=== PATIENT | male | born 1970 | race Asian ===

== ENCOUNTER 2024-01-13 08:04 | Day surgery (SDC) | payer OTHER ==
[~2024-01-13] VITALS: Ht 167.6 cm; Wt 65.8 kg
[2024-01-13 09:03] VITALS: O2SAT 99
[2024-01-13] MEDS ORDERED: MIDAZOLAM HCL 5 MG/5 ML VIAL ONE (09:58)
[2024-01-13] MEDS ORDERED: MEPERIDINE 100 MG INJ. 100 MG/ML VIAL ONE (09:58)
[2024-01-13 16:07] VITALS: BP_SYST 157; PULSE 85; RESP 18
== END 2024-01-13 11:05 | disposition home or self-care (01) ==
LOC: SDS 08:04 → SMU 08:08 → SDS 11:05
PROVIDERS: ATTEND Internal Medicine
DX: Z12.11 Encounter for screening for malignant neoplasm of colon (principal); K57.30 Diverticulosis of large intestine without perforation or abscess without bleeding; K64.8 Other hemorrhoids; I10 Essential (primary) hypertension; E11.9 Type 2 diabetes mellitus without complications; Z79.84 Long term (current) use of oral hypoglycemic drugs; Z79.899 Other long term (current) drug therapy
CPT/HCPCS: 45378; 82948; 99152; G0378; J2250; J2175

== ENCOUNTER 2024-01-27 18:51 | Emergency (ER) | payer OTHER ==
[~2024-01-27] VITALS: Ht 167.6 cm; Wt 67.6 kg
[2024-01-27 19:16] VITALS: BP_SYST 190; PULSE 79; RESP 20; TEMP 97.7; O2SAT 99
[2024-01-27 20:04] LABS: HEMATOCRIT 48.4 % (36-54); HEMOGLOBIN 16.8 g/dL (14.0-18.0); MEAN CORPUSCULAR HEMOGLOBIN 31 pg (27-31); MEAN CORPUSCULAR HGB CONC 35 % (32-36); MEAN CORPUSCULAR VOLUME 90 fL (79.0-98.0); PLATELET COUNT (AUTO) 281 K/uL (130-430); RED BLOOD CELL COUNT(AUTO) 5.38 MIL/uL (4.2-6.2); RED CELL DISTRIBUTION WIDTH 13.1 % (9.0-15.0); WHITE BLOOD COUNT (AUTO) 15.7 K/uL (4.8-10.8)
[2024-01-27 20:15] LABS: CALCIUM 9.7 mg/dL (8.4-11.0); CREATININE 1.15 mg/dL (0.55-1.30); POTASSIUM 3.6 mmol/L (3.5-5.1)
[2024-01-27 20:20] LABS: ALBUMIN 3.8 g/dL (3.4-4.8); BILIRUBIN,DIRECT 0.1 mg/dL (0.0-0.3); TOTAL BILIRUBIN 0.4 mg/dL (0.0-1.0); TOTAL PROTEIN, SERUM 8.2 g/dL (6.4-8.3)
[2024-01-27 20:34] LABS: BILIRUBIN,URINE 1+ (NEGATIVE); BLOOD, URINE 3+ (NEGATIVE); CLARITY/URINE SL CLOUDY (CLEAR); COLOR,URINE YELLOW (YELLOW); GLUCOSE,URINE 3+ (NEGATIVE); KETONES,URINE 1+ (NEGATIVE); LEUKOCYTE ESTERASE ,URINE NEGATIVE (NEGATIVE); NITRITE, URINE NEGATIVE (NEGATIVE); PH,URINE 5.5 (5.0-8.0); PROTEIN URINE 2+ (NEGATIVE); UROBILINOGEN,URINE 0.2 (0.2-1.0)
[2024-01-27 20:59] LABS: BAND % (MANUAL) 0 % (0-6); BASOPHILS % (MANUAL) 0 % (0-2); EOSINOPHILS % (MANUAL) 1 % (0-7); LYMPHOCYTES % (MANUAL) 6 % (20-46); MONOCYTES % (MANUAL) 15 % (0-11); PLATELET ESTIMATE ADEQUATE (ADEQUATE)
[2024-01-27 21:00] LABS: RBC,URINE >100 /HPF (0-3)
[2024-01-27 21:01] LABS: BACTERIA,URINE MODERATE /HPF (None Seen); MUCUS,URINE 2+ /LPF (None Seen)
[2024-01-27 21:05] VITALS: BP_SYST 168; PULSE 74; RESP 18; O2SAT 98
[2024-01-27 21:11] LABS: PROTHROMBIN TIME 9.9 SECS (9.5-12.5)
[2024-01-27] MEDS: cefTRIAXone 1 GM IVPB PREMIX 50 ML IV ONE (21:57)
[2024-01-27] MEDS: TAMSULOSIN HCL 0.4 MG CAP PO ONE (21:57)
[2024-01-27] MEDS: NACL 0.9% 1,000 ML IV ONE (21:57)
[2024-01-27] MEDS: KETOROLAC TROMETHAMINE 30 MG VIAL IVP ONE (21:59)
[2024-01-27] MEDS: ONDANSETRON HCL 4 MG/2 ML VIAL IVP ONE (22:00)
[2024-01-27] MEDS ORDERED: TAMS-11 PO (22:37)
[2024-01-27] MEDS ORDERED: CEPH-548 PO (22:37)
[2024-01-27] MEDS ORDERED: IBUP-1969 PO (22:37)
[2024-01-27 23:01] VITALS: TEMP 98.6
== END 2024-01-27 22:07 | disposition home or self-care (01) ==
LOC: SED 18:51
DX: N20.1 Calculus of ureter (principal); N39.0 Urinary tract infection, site not specified; N13.30 Unspecified hydronephrosis; R31.9 Hematuria, unspecified; E11.9 Type 2 diabetes mellitus without complications; I10 Essential (primary) hypertension; E78.00 Pure hypercholesterolemia, unspecified; Z79.899 Other long term (current) drug therapy
CPT/HCPCS: 99285; 74176; 96365; 85027; 80076; 80048; 81001; 83690; 85007; 85610; 85730; 87040; 87086; 36415; 87798; 87481; 87653; 87641; 87500; 83605; 81000; 81015; J0696; J1885; J2405

== ENCOUNTER 2024-03-12 06:40 | Inpatient (IN) | payer OTHER ==
[~2024-03-12] VITALS: Ht 167.6 cm; Wt 67.6 kg
[~2024-03-12 06:40] MED LIST: CEPH-548 PO; IBUP-1969 PO; TAMS-11 PO
[2024-03-12 06:43] VITALS: BP_SYST 184; PULSE 79; RESP 16; TEMP 98.2; O2SAT 100
[2024-03-12 07:45] LABS: BASOPHILS # (AUTO) 0.1 K/uL (0.0-0.2); BASOPHILS % (AUTO) 0.6 % (0.0-2.0); EOSINOPHILS # (AUTO) 0.1 K/uL (0.0-0.4); EOSINOPHILS % (AUTO) 1.1 % (0.0-4.0); HEMOGLOBIN 15.1 g/dL (14.0-18.0); LYMPHOCYTES % (AUTO) 19.2 % (20.5-51.5); MEAN CORPUSCULAR HEMOGLOBIN 31 pg (27-31); MEAN CORPUSCULAR HGB CONC 34 % (32-36); MEAN CORPUSCULAR VOLUME 90 fL (79.0-98.0); MONOCYTES # (AUTO) 0.9 K/uL (0.0-1.0); MONOCYTES % (AUTO) 8.8 % (1.7-9.3); NEUTROPHILS # (AUTO) 7.4 K/uL (1.8-7.7); NEUTROPHILS % (AUTO) 70.3 % (40.0-70.0); PLATELET COUNT (AUTO) 279 K/uL (130-430); RED BLOOD CELL COUNT(AUTO) 4.88 MIL/uL (4.2-6.2); WHITE BLOOD COUNT (AUTO) 10.5 K/uL (4.8-10.8)
[2024-03-12 07:55] LABS: ANION GAP 8 (5-15); CARBON DIOXIDE 28 mmol/L (23-29); CHLORIDE 103 mmol/L (98-107); CREATININE 0.85 mg/dL (0.55-1.30); GFR AFRICAN AMERICAN 121 mL/min (>90); GLUCOSE 209 mg/dL (74-106); POTASSIUM 4.1 mmol/L (3.5-5.1); SODIUM SERUM 139 mmol/L (136-145); UREA NITROGEN, BLOOD 10 mg/dL (8-21)
[2024-03-12 08:05] LABS: GFR NON AFRICAN-AMERICAN 100 mL/min (>90)
[2024-03-12] MEDS: ASPIRIN 325 MG TABLET PO ONE (09:10)
[2024-03-12] MEDS: LISINOPRIL 10 MG TABLET (PRINIVIL) PO ONE (09:13)
[2024-03-12 09:57] LABS: BILIRUBIN,URINE NEGATIVE (NEGATIVE); BLOOD, URINE NEGATIVE (NEGATIVE); CLARITY/URINE CLEAR (CLEAR); COLOR,URINE YELLOW (YELLOW); GLUCOSE,URINE 2+ (NEGATIVE); KETONES,URINE NEGATIVE (NEGATIVE); LEUKOCYTE ESTERASE ,URINE NEGATIVE (NEGATIVE); NITRITE, URINE NEGATIVE (NEGATIVE); PROTEIN URINE NEGATIVE (NEGATIVE); UROBILINOGEN,URINE 0.2 (0.2-1.0)
[2024-03-12] MEDS: LABETALOL HCL 20 MG/4 ML CARTRIDGE IVP ONE (10:16)
[2024-03-12] MEDS ORDERED: IPRATROPIUM BROM 0.5 MG/2.5 ML VIAL.NEB (ATROVENT) INH PRN (10:30)
[2024-03-12] MEDS ORDERED: ONDANSETRON HCL 4 MG/2 ML VIAL IVP PRN (10:30)
[2024-03-12] MEDS ORDERED: HYDROcodone/ACETAMIN 10-325 MG TAB PO PRN (10:30)
[2024-03-12] MEDS ORDERED: MORPHINE 2 MG/ML INJ. SYRINGE IVP PRN (10:30)
[2024-03-12 10:40] VITALS: BP_SYST 182; PULSE 70; O2SAT 100
[2024-03-12 10:40] LABS: BARBITURATE, URINE NEGATIVE (NEG <=200); BENZODIAZEPINE, URINE NEGATIVE (NEG <=150); CANNABINOID, URINE NEGATIVE (NEG <=50); COCAINE, URINE NEGATIVE (NEG <=150); METHAMPHETAMINES SCREEN,URINE NEGATIVE (NEG <=500); OPIATE, URINE NEGATIVE (NEG <=100); PHENCYCLIDINE SCREEN,URINE NEGATIVE (NEG <=25); UR TRICYCLIC ANTIDEPRESSANTS NEGATIVE (NEG <=300); URINE AMPHETAMINE NEGATIVE (NEG <=500); URINE METHADONE NEGATIVE (NEG <=200); URINE OXYCODONE SCREEN NEGATIVE (NEG <=100)
[2024-03-12] MEDS ORDERED: ACETAMINOPHEN 325 MG TABLET PO PRN (11:30)
[2024-03-12] MEDS: CLOPIDOGREL BISULFATE 75 MG TABLET PO ONE (12:07)
[2024-03-12] MEDS ORDERED: iohexoL 350 mgI/mL, 100 ML INFUS..BTL IV ONE (12:14)
[2024-03-12] MEDS ORDERED: GLUCOSE (DEXTROSE) ORAL GEL -Adults PO PRN (15:15)
[2024-03-12] MEDS ORDERED: DEXTROSE 50% JECT 50 ML DISP.SYRIN IVP PRN (15:15)
[2024-03-12] MEDS: INSULIN REGULAR, HUMAN 100 UNITS/ML, 3 ML VIAL (humuLIN R) SUBCUT PRN (18:39)
[2024-03-12] MEDS ORDERED: hydrALAZINE HCL 20 MG/ML VIAL IVP PRN (19:45)
[2024-03-12 21:00] VITALS: BP_SYST 172; PULSE 71; PULSE 95; RESP 18; TEMP 97.8; TEMP 98; O2SAT 98
[2024-03-12] MEDS: lisinopriL 20 MG TABLET PO ONE (21:43)
[2024-03-13] VITALS: BP_SYST 175; RESP 18
[2024-03-13 04:00] VITALS: BP_SYST 153; PULSE 73; RESP 18; TEMP 97.8; O2SAT 97
[2024-03-13] MEDS: HYDROcodone/ACETAMIN 5-325 MG TAB (NORCO/ VICODIN) PO PRN (06:23)
[2024-03-13 08:00] VITALS: BP_SYST 141; PULSE 68; RESP 16; O2SAT 96
[2024-03-13 08:02] LABS: BASOPHILS # (AUTO) 0.1 K/uL (0.0-0.2); BASOPHILS % (AUTO) 0.7 % (0.0-2.0); EOSINOPHILS # (AUTO) 0.5 K/uL (0.0-0.4); EOSINOPHILS % (AUTO) 4.8 % (0.0-4.0); HEMATOCRIT 45.9 % (36-54); LYMPHOCYTES # (AUTO) 1.7 K/uL (1.0-5.5); LYMPHOCYTES % (AUTO) 16.4 % (20.5-51.5); MEAN CORPUSCULAR HEMOGLOBIN 31 pg (27-31); MEAN CORPUSCULAR HGB CONC 35 % (32-36); MEAN CORPUSCULAR VOLUME 90 fL (79.0-98.0); MONOCYTES % (AUTO) 9.1 % (1.7-9.3); NEUTROPHILS # (AUTO) 7.3 K/uL (1.8-7.7); PLATELET COUNT (AUTO) 292 K/uL (130-430); RED BLOOD CELL COUNT(AUTO) 5.11 MIL/uL (4.2-6.2); RED CELL DISTRIBUTION WIDTH 13.9 % (9.0-15.0); WHITE BLOOD COUNT (AUTO) 10.5 K/uL (4.8-10.8)
[2024-03-13 08:15] LABS: ALBUMIN 3.6 g/dL (3.4-4.8); CREATININE 0.89 mg/dL (0.55-1.30); POTASSIUM 3.8 mmol/L (3.5-5.1); TOTAL BILIRUBIN 0.7 mg/dL (0.0-1.0); TOTAL PROTEIN, SERUM 7.5 g/dL (6.4-8.3)
[2024-03-13] MEDS ORDERED: LISI20TA30 PO (08:54)
[2024-03-13] MEDS ORDERED: METF-379 PO (08:54)
[2024-03-13] MEDS ORDERED: SIMV-341 PO (08:54)
[2024-03-13] MEDS: CLOPIDOGREL BISULFATE 75 MG TABLET PO SCH (08:56)
[2024-03-13] MEDS: ASPIRIN 81 MG TAB.CHEW PO SCH (08:56)
[2024-03-13] MEDS: lisinopriL 20 MG TABLET PO SCH (08:57)
[2024-03-13 11:09] VITALS: BP_SYST 133; PULSE 69; RESP 16; TEMP 98.4; O2SAT 99
[2024-03-13 13:53] LABS: CHOLESTEROL 204 mg/dL (<200); HDL CHOLESTEROL 52 mg/dL (>45); TRIGLYCERIDES 89 mg/dL (30-150)
[2024-03-13] MEDS: ATORVASTATIN 20 MG TABLET PO ONE (14:54)
[2024-03-13 15:29] VITALS: BP_SYST 140; PULSE 81; RESP 16; TEMP 97.1; O2SAT 98
[2024-03-13] MEDS ORDERED: lisinopriL 20 MG TABLET PO SCH (16:00)
[2024-03-13 20:00] VITALS: BP_SYST 143; PULSE 84; RESP 18; TEMP 97.5; O2SAT 95; O2SAT 96
[2024-03-13] MEDS: INSULIN GLARGINE 100 UNITS/ML, 10 ML VIAL SUBCUT SCH (21:14)
[2024-03-14] VITALS (7 sets, daily range): BP systolic 135–173; PULSE 68–82; RESP 16–20; TEMP 97.5–99.8; O2SAT 95–100
[2024-03-14 07:13] LABS: BASOPHILS # (AUTO) 0.1 K/uL (0.0-0.2); BASOPHILS % (AUTO) 0.6 % (0.0-2.0); EOSINOPHILS # (AUTO) 0.4 K/uL (0.0-0.4); EOSINOPHILS % (AUTO) 3.3 % (0.0-4.0); HEMATOCRIT 44.7 % (36-54); HEMOGLOBIN 15.5 g/dL (14.0-18.0); LYMPHOCYTES # (AUTO) 2.4 K/uL (1.0-5.5); MEAN CORPUSCULAR HEMOGLOBIN 31 pg (27-31); MEAN CORPUSCULAR HGB CONC 35 % (32-36); MEAN CORPUSCULAR VOLUME 90 fL (79.0-98.0); MONOCYTES # (AUTO) 1.1 K/uL (0.0-1.0); MONOCYTES % (AUTO) 10.1 % (1.7-9.3); PLATELET COUNT (AUTO) 281 K/uL (130-430); RED BLOOD CELL COUNT(AUTO) 4.97 MIL/uL (4.2-6.2); RED CELL DISTRIBUTION WIDTH 13.7 % (9.0-15.0); WHITE BLOOD COUNT (AUTO) 10.9 K/uL (4.8-10.8)
[2024-03-14 07:34] LABS: ALBUMIN 3.3 g/dL (3.4-4.8); CALCIUM 8.7 mg/dL (8.4-11.0); CREATININE 0.77 mg/dL (0.55-1.30); TOTAL BILIRUBIN 0.5 mg/dL (0.0-1.0); TOTAL PROTEIN, SERUM 7.1 g/dL (6.4-8.3)
[2024-03-14] MEDS: ATORVASTATIN 20 MG TABLET PO SCH (10:01)
[2024-03-14] MEDS: lisinopriL 20 MG TABLET PO ONE (12:11)
[2024-03-14] MEDS: ACETAMINOPHEN 325 MG TABLET PO PRN (18:32)
[2024-03-14] MEDS: lisinopriL 20 MG TABLET PO SCH (20:53)
[2024-03-15 00:33] VITALS: BP_SYST 134; PULSE 85; RESP 18; TEMP 97.2; O2SAT 97
[2024-03-15 07:20] LABS: BASOPHILS # (AUTO) 0.1 K/uL (0.0-0.2); BASOPHILS % (AUTO) 0.4 % (0.0-2.0); EOSINOPHILS # (AUTO) 0.3 K/uL (0.0-0.4); EOSINOPHILS % (AUTO) 2.4 % (0.0-4.0); HEMATOCRIT 44.8 % (36-54); HEMOGLOBIN 15.5 g/dL (14.0-18.0); LYMPHOCYTES # (AUTO) 2.3 K/uL (1.0-5.5); LYMPHOCYTES % (AUTO) 20.6 % (20.5-51.5); MEAN CORPUSCULAR HEMOGLOBIN 31 pg (27-31); MEAN CORPUSCULAR HGB CONC 35 % (32-36); MEAN CORPUSCULAR VOLUME 90 fL (79.0-98.0); MONOCYTES # (AUTO) 1.1 K/uL (0.0-1.0); MONOCYTES % (AUTO) 9.9 % (1.7-9.3); NEUTROPHILS # (AUTO) 7.6 K/uL (1.8-7.7); NEUTROPHILS % (AUTO) 66.7 % (40.0-70.0); PLATELET COUNT (AUTO) 297 K/uL (130-430); RED CELL DISTRIBUTION WIDTH 13.7 % (9.0-15.0); WHITE BLOOD COUNT (AUTO) 11.3 K/uL (4.8-10.8)
[2024-03-15 08:19] LABS: ALBUMIN 3.6 g/dL (3.4-4.8); CREATININE 0.72 mg/dL (0.55-1.30); TOTAL BILIRUBIN 0.8 mg/dL (0.0-1.0); TOTAL PROTEIN, SERUM 7.5 g/dL (6.4-8.3)
[2024-03-15 08:30] VITALS: O2SAT 98
[2024-03-15 09:12] VITALS: PULSE 85; O2SAT 97
[2024-03-15 11:48] VITALS: BP_SYST 160; PULSE 79; RESP 16; TEMP 97.6; O2SAT 99
[2024-03-15 15:09] VITALS: BP_SYST 106; PULSE 68; RESP 18; TEMP 97; O2SAT 97
== END 2024-03-15 15:55 | disposition home or self-care (01) | DRG 45 ==
LOC: SED 06:40 → STU 10:27 → SMU 03-13 16:37
PROVIDERS: ADMIT Family Medicine; ATTEND Family Medicine
DX: I63.9 Cerebral infarction, unspecified (principal); G81.94 Hemiplegia, unspecified affecting left nondominant side; E11.9 Type 2 diabetes mellitus without complications; I10 Essential (primary) hypertension; I16.0 Hypertensive urgency; E78.5 Hyperlipidemia, unspecified; I65.01 Occlusion and stenosis of right vertebral artery; Z79.899 Other long term (current) drug therapy
CPT/HCPCS: 36415; 70450-TC; 70496; 70498; 70551; 80048; 80053; 80061; 80307; 81001; 81003; 82948; 83037; 84484; 85025; 85610; 85730; 93005; 93306; 94760; 96374; 99291; G0378; J1815; Q9967